=== PATIENT | female | born 1950 | race Caucasian/White ===

== ENCOUNTER 2019-01-28 19:02 | Emergency (ER) | payer OTHER ==
--- NOTE | 2019-01-28 19:09 | PDOC ---
Rapid Medical Evaluation Time Seen by Provider: 01/28/19 19:07 Medical Evaluation: 01/28/19 19:08 I have performed a brief in-person evaluation of this patient. The patient presents with a chief complaint of: fall off chair yesterday, pain to R ankle, L rib pain, R head pain, denies LOC Pertinent physical exam findings: swelling/ecchymosis to R ankle I have ordered the following: xrays, head ct The patient will proceed to the ED for further evaluation. Discharge Disposition - Diagnosis Fall - Discharge Dispostion Condition at time of disposition: Stable - Referrals - Patient Instructions - Post Discharge Activity
[2019-01-28 19:12] VITALS: BP 146/50; PULSE 79; TEMP 98.1; BMI 25.9
--- NOTE | 2019-01-28 21:18 | PDOC ---
History of Present Illness - General Chief Complaint: Injury Stated Complaint: FALL Time Seen by Provider: 01/28/19 19:07 - History of Present Illness Initial Comments: 01/28/19 21:04 69 y/o F w/PMH of NIDDM presents for evaluation after a fall off a chair. She did hit her head, there was no LOC, post injury nausea, vomiting, visual changes , she does have a PERLA on the L where she struck her head on the floor. She also has R lateral ankle pain, she describes an inversion type injury. She also has L sided rib and back pain. Past History - Past Medical History Allergies/Adverse Reactions: Allergies Allergy/AdvReac Type Severity Reaction Status Date / Time No Known Allergies Allergy Verified 01/28/19 19:11 COPD: No Diabetes: Yes - Surgical History Lung Surgery: No Neurologic Surgery: No - Suicide/Smoking/Psychosocial Hx Smoking History: Never smoked Have you smoked in the past 12 months: No Hx Alcohol Use: No Drug/Substance Use Hx: No Review of Systems - Review of Systems HEENTM: No: Blurred Vision Musculoskeletal: Yes: Joint Pain Neurological: Yes: Headache. No: Dizziness *Physical Exam - Vital Signs Last Vital Signs Temp Pulse Resp BP Pulse Ox 98.1 F 79 16 146/50 L 100 01/28/19 19:08 01/28/19 19:08 01/28/19 19:08 01/28/19 19:08 01/28/19 19:08 - Physical Exam Comments: 01/28/19 21:08 HEAD: NC/AT EYES: Conjuntiva clear Ears: Canals and TM's normal NOSE: No d/c THROAT: Moist mucous membrances, oral pharanx clear, uvula midline NECK: Supple without adenopathy CARDIAC: S1 S2 Mild L sided para thorasic tenderness and spasm, no appreciable rib tenderness LUNGS: CTA Full and Equal breath sounds ABDOMEN: Soft NT ND NEUROLOGIC: No gross sensory or motor deficits, NVID SKIN: Normal color and temperature no lesions or rashes Right ankle skin color and temperature are normal range of motion is slightly decreased. There is mild lateral swelling. There is no tenderness about the knee proximal fibula or along its distal course. No tenderness about the medial or lateral malleolus base of the fifth metatarsal or navicular. Mild tenderness about the ATFL. No instability or gross sensorimotor deficits neurovascularly intact thighs and calves are soft and nontender. ED Treatment Course - RADIOLOGY Radiology Studies Ordered: Category Date Time Status CHEST PA & LAT [RAD] Stat Radiology 01/28/19 20:25 Taken Medical Decision Making - Medical Decision Making 01/28/19 22:00 CT negative, WBAT ankle sprain f/u with neurology and ortho *DC/Admit/Observation/Transfer Diagnosis at time of Disposition: Fall, Closed head injury, Ankle sprain, Rib contusion, Strain of mid-back - Discharge Dispostion Disposition: HOME Condition at time of disposition: Stable Decision to Admit order: No - Referrals Referrals: Tamia Hardin MD [Primary Care Provider] - Jaron Hwang MD [Staff Physician] - Markus Stover DO [Staff Physician] - - Patient Instructions Additional Instructions: You may take tylenol for headache and ankle pain. Please, without fail, follow up with orthopedic surgery for further evaluation and treatment options for your ankle sprain, and mid back strain, and with neurology for your closed head injury. Return to the emergency room should your symptoms worsen. you may weight bear as tolerated with the use of the air cast and crutches for your ankle sprain. - Post Discharge Activity
== END 2019-01-28 22:17 | disposition home or self-care (01) ==
LOC: JERFT 19:02
DX: S09.8XXA Other specified injuries of head, initial encounter (principal); S93.401A Sprain of unspecified ligament of right ankle, initial encounter; S29.012A Strain of muscle and tendon of back wall of thorax, initial encounter; S20.222A Contusion of left back wall of thorax, initial encounter; W07.XXXA Fall from chair, initial encounter; Y93.89 Activity, other specified; Y92.038 Other place in apartment as the place of occurrence of the external cause; E11.9 Type 2 diabetes mellitus without complications; Z79.84 Long term (current) use of oral hypoglycemic drugs
CPT/HCPCS: 70450-TC; 71046-TC-FY; 71101-TC-LT-FY; 73610-TC-RT-FY; 73630-TC-RT-FY; 99283-25

== ENCOUNTER 2019-08-04 07:45 | Emergency (ER) | payer BC, OTHER ==
[2019-08-04 07:51] VITALS: BP 126/78; TEMP 98; BMI 56.8
[2019-08-04] MEDS ORDERED: ACETAMINOPHEN 325 MG TABLET (FP) PO ONE (08:02)
[2019-08-04] MEDS ORDERED: LIDOCAINE 5% TOPICAL PATCH TP ONE (08:02)
[2019-08-04] MEDS ORDERED: ACETAMINOPHEN 325 MG TABLET (FP) ONE (08:07)
[2019-08-04] MEDS ORDERED: LIDOCAINE 5% TOPICAL PATCH ONE (08:07)
--- NOTE | 2019-08-04 08:16 | PDOC ---
History of Present Illness - General Chief Complaint: Respiratory Stated Complaint: FEVER Time Seen by Provider: 08/04/19 08:00 History Source: Patient Exam Limitations: No Limitations Past History - Travel Traveled outside of the country in the last 30 days: No Close contact w/someone who was outside of country & ill: No - Past Medical History Allergies/Adverse Reactions: Allergies Allergy/AdvReac Type Severity Reaction Status Date / Time No Known Allergies Allergy Verified 08/04/19 07:51 Home Medications: Ambulatory Orders Acetaminophen [Tylenol -] 1,000 mg PO Q6H #50 tablet 08/04/19 Atorvastatin Calcium [Lipitor] 20 mg PO HS 08/04/19 Cyclobenzaprine HCl [Flexeril -] 10 mg PO HS #10 tablet 08/04/19 Ibuprofen [Ibu] 600 mg PO ONCE 08/04/19 Metformin HCl [Glucophage] 500 mg PO ASDIR 08/04/19 COPD: No Diabetes: Yes - Surgical History Lung Surgery: No Neurologic Surgery: No - Psycho Social/Smoking Cessation Hx Smoking History: Never smoked Have you smoked in the past 12 months: No Hx Alcohol Use: No Drug/Substance Use Hx: No Review of Systems - Review of Systems Able to Perform ROS?: Yes Is the patient limited Croatian proficient: No Constitutional: Yes: Chills. No: Weakness Respiratory: Yes: Cough. No: Shortness of Breath, Wheezing Musculoskeletal: Yes: Back Pain (upper and lower) Neurological: Yes: Headache. No: Weakness All Other Systems: Reviewed and Negative *Physical Exam - Vital Signs Last Vital Signs Temp Pulse Resp BP Pulse Ox 98 F 111 H 18 126/78 99 08/04/19 07:49 08/04/19 07:49 08/04/19 07:49 08/04/19 07:49 08/04/19 07:49 - Physical Exam General Appearance: Yes: Nourished, Appropriately Dressed. No: Apparent Distress HEENT: positive: EOMI, Pharynx Normal Neck: positive: Trachea midline. negative: Tender, Rigid Respiratory/Chest: positive: Lungs Clear, Normal Breath Sounds. negative: Respiratory Distress, Accessory Muscle Use Cardiovascular: positive: Regular Rhythm, Regular Rate, S1, S2 (present). negative: Murmur Musculoskeletal: positive: Muscle Spasm (thoracic paraspinous muscles b/l. ). negative: Vertebral Tenderness, Other (straight leg raise testing b/l ) Neurologic: positive: Fully Oriented, Alert, Normal Mood/Affect, Normal Response, Motor Strength 5/5. negative: Numbness Medical Decision Making - Medical Decision Making 08/04/19 08:40 The patient is a 69 y/o F with PMH of HTN and NIDDM, presents to the ER for upper back pain, cough, and fever for one day. She states she did not take her temperature at home when she had the fever and chills. She states she had seen her PCP for her upper back pain and was referred to a pain management doctor, but she has not been able to make an appointment at this time. She states she took Aleve prior to arrival for her pain. Denies weakness, numbness/tingling to the extremities, saddle anesthesia, bladder/bowel incontinence, gait changes. A/P: Back pain/Cough VSS in triage. Afebrile Likely upper back pain made worse by coughing Pt drove to the ED, defer narcotics/muscle relaxers CXR ordered COVID on differential however no swabs available for testing Tylenol and lidocaine patch given for pain 08/04/19 09:17 X-ray shows no acute chest pathology DC home with muscle relaxers and instructions to make a pain management appointment. Discharge - Discharge Information Problems reviewed: Yes Clinical Impression/Diagnosis: Back pain Qualifiers: Back pain location: thoracic back pain Chronicity: acute Back pain laterality: bilateral Qualified Code(s): M54.6 - Pain in thoracic spine Condition: Stable Disposition: HOME - Admission No - Additional Discharge Information Prescriptions: Cyclobenzaprine HCl [Flexeril -] 10 mg PO HS #10 tablet Acetaminophen [Tylenol -] 1,000 mg PO Q6H #50 tablet - Follow up/Referral Referrals: Tamia Boyle [Primary Care Provider] - - Patient Discharge Instructions Patient Printed Discharge Instructions: DI for Thoracic Back Pain, [facility]- Coronavirus Instructions Additional Instructions: Please self isolate as you have cough and fever for 2 weeks Your chest x-ray was normal Make an appointment with the pain management doctor you have been referred to Take the Tylenol as directed. Do not take more than 4,000mg a day Take the flexeril as directed (muscle relaxer). Do not drink or drive after taking this medication as it may make you drowsy Return to the ER for worsening pain, numbness and tingling, numbness in your groin, loss of bladder/bowel function, or if you have any changes in your sym ptoms - Post Discharge Activity Work/Back to School Note: Back to Work
[2019-08-04 09:27] VITALS: PULSE 90
== END 2019-08-04 09:27 | disposition home or self-care (01) ==
LOC: JER 07:45
DX: M54.6 Pain in thoracic spine (principal); I10 Essential (primary) hypertension; E11.9 Type 2 diabetes mellitus without complications; Z79.84 Long term (current) use of oral hypoglycemic drugs
CPT/HCPCS: 71045-TC-FY; 99283-25

== ENCOUNTER 2022-03-25 09:37 | Emergency (ER) | payer OTHER ==
[2022-03-25 09:48] VITALS: TEMP 97.9; BMI 25.9
[2022-03-25] MEDS ORDERED: GABAPENTIN 400 MG CAPSULE PO ONE (13:13)
[2022-03-25] MEDS ORDERED: GABAPENTIN 400 MG CAPSULE ONE (13:22)
[2022-03-25 15:00] VITALS: BP 130/81; PULSE 82; RESP 18
== END 2022-03-25 15:00 | disposition home or self-care (01) ==
LOC: JER 09:37
DX: M54.30 Sciatica, unspecified side (principal)
CPT/HCPCS: 73590-TC-RT-FY; 73610-TC-RT-FY; 93971-TC; 99284-25

== ENCOUNTER 2022-08-11 09:40 | Emergency (ER) | payer OTHER ==
[2022-08-11 09:46] VITALS: RESP 18; BMI 26.5
[2022-08-11] MEDS ORDERED: ACETAMINOPHEN 1000 MG/100 ML BAG IVPB ONE (10:26)
[2022-08-11] MEDS ORDERED: ACETAMINOPHEN INJECTION 100 ML IVPB ONE (10:53)
[2022-08-11 11:05] LABS: BASO % 0.2 % (0-2.0); EOS % 1.1 % (0-4.5); HEMATOCRIT 39.3 % (32.4-45.2); HEMOGLOBIN 13.5 GM/dL (10.7-15.3); LYMPH % 21.4 % (8-40); MCH 30.2 pg (25.7-33.7); MCHC 34.2 g/dl (32.0-36.0); MEAN CELL VOLUME 88.4 fl (80-96); MEAN PLT VOLUME 9.1 fl (7.5-11.1); MONO % 5.6 % (3.8-10.2); NEUT % 71.7 % (42.8-82.8); PLATELET COUNT 242 10^3/uL (134-434); RBC 4.45 M/mm3 (3.60-5.2); RDW 14.2 % (11.6-15.6); WHITE BLOOD COUNT 8.5 K/mm3 (4.0-10.0)
[2022-08-11 11:08] LABS: EPI CELLS >36 /uL (0-25.1); HYALINE CASTS 1 /uL (0-3.1); URINE APPEARANCE CLOUDY; URINE BACTERIA 11 /uL (0-1359); URINE BILIRUBIN NEGATIVE (NEGATIVE); URINE COLOR YELLOW; URINE GLUCOSE (UA) 2+ (NEGATIVE); URINE KETONE NEGATIVE (NEGATIVE); URINE LEUK ESTERASE NEGATIVE (NEGATIVE); URINE NITRITE NEGATIVE (NEGATIVE); URINE PROTEIN 2+ (NEGATIVE); URINE RBC 937 /uL (0-23.9); URINE WBC 28 /uL (0-25.8)
[2022-08-11 11:25] LABS: LACTIC ACID 2.7 mmol/L (0.4-2.0)
[2022-08-11 11:28] LABS: CALCIUM 9.1 mg/dL (8.5-10.1)
[2022-08-11 11:29] LABS: ALBUMIN 3.8 g/dl (3.4-5.0); BLOOD UREA NITROGEN 20.9 mg/dL (7-18)
[2022-08-11 11:32] LABS: CREATININE 0.8 mg/dL (0.55-1.3)
[2022-08-11 11:33] LABS: BILIRUBIN,TOTAL 0.4 mg/dL (0.2-1); TOT PROT 7.2 g/dl (6.4-8.2)
[2022-08-11] MEDS ORDERED: SODIUM CHLORIDE 0.9% 500 ML INFUS.BAG IV ONE (11:35)
[2022-08-11 17:46] VITALS: BP 120/75; PULSE 65; TEMP 97.9
== END 2022-08-11 17:46 | disposition home or self-care (01) ==
LOC: JER 09:40
PROC: 3E033NZ Introduction of Analgesics, Hypnotics, Sedatives into Peripheral Vein, Percutaneous Approach (ICD-10-PCS; principal; 2022-08-11)
DX: N30.00 Acute cystitis without hematuria (principal); R10.31 Right lower quadrant pain
CPT/HCPCS: 36415; 74176-TC; 80053; 81003; 83605; 83735; 85025; 87086; 93005; 93010; 99285-25

== ENCOUNTER 2023-05-21 15:16 | Emergency (ER) | payer OTHER ==
[2023-05-21 15:22] VITALS: RESP 18; TEMP 98.8; BMI 25.9
[2023-05-21] MEDS ORDERED: ONDANSETRON 4 MG/2 ML VIAL IVPUSH ONE (16:37)
[2023-05-21] MEDS ORDERED: ACETAMINOPHEN 1000 MG/100 ML BAG IVPB ONE (16:37)
[2023-05-21] MEDS ORDERED: FAMOTIDINE 20 MG/50 ML IVPB 20 MG/50 ML MG IVPB ONE ×2 (16:37→17:31)
[2023-05-21] MEDS ORDERED: SODIUM CHLORIDE 1,000 ML IV STA ×2 (16:37→23:15)
[2023-05-21 17:04] LABS: BASO % 0.4 % (0-2.0); EOS % 0.7 % (0-4.5); HEMATOCRIT 40.2 % (32.4-45.2); HEMOGLOBIN 13.2 GM/dL (10.7-15.3); LYMPH % 6.8 % (8-40); MCH 28.8 pg (25.7-33.7); MCHC 32.8 g/dl (32.0-36.0); MEAN CELL VOLUME 87.8 fl (80-96); MEAN PLT VOLUME 8.3 fl (7.5-11.1); MONO % 6.8 % (3.8-10.2); NEUT % 85.3 % (42.8-82.8); PLATELET COUNT 235 10^3/uL (134-434); RBC 4.58 M/mm3 (3.60-5.2); RDW 14.7 % (11.6-15.6); WHITE BLOOD COUNT 12.4 K/mm3 (4.0-10.0)
[2023-05-21 17:11] LABS: INR 1.07 (0.83-1.09); PROTHROMBIN TIME (PATIENT) 12.4 SEC (9.7-13.0)
[2023-05-21 17:14] LABS: ACTIVATED PTT 31.6 SECONDS (25.2-36.5)
[2023-05-21 17:23] LABS: POTASSIUM 3.8 mmol/L (3.5-5.1)
[2023-05-21 17:25] LABS: CALCIUM 9.4 mg/dL (8.5-10.1)
[2023-05-21 17:26] LABS: ALBUMIN 3.8 g/dl (3.4-5.0); BLOOD UREA NITROGEN 12.9 mg/dL (7-18); MAGNESIUM 1.7 mg/dL (1.8-2.4)
[2023-05-21 17:29] LABS: CREATININE 0.6 mg/dL (0.55-1.3)
[2023-05-21 17:30] LABS: BILIRUBIN,TOTAL 0.6 mg/dL (0.2-1); TOT PROT 7.3 g/dl (6.4-8.2)
[2023-05-21] MEDS ORDERED: ACETAMINOPHEN INJECTION 100 ML IVPB ONE (17:31)
[2023-05-21] MEDS ORDERED: ONDANSETRON 4 MG/2 ML VIAL ONE (17:31)
[2023-05-21] MEDS ORDERED: MECLIZINE HCL 25 MG TABLET (FP) PO ONE (17:55)
[2023-05-21] MEDS ORDERED: MECLIZINE HCL 25 MG TABLET (FP) ONE (18:25)
[2023-05-21 20:07] VITALS: BP 124/67; PULSE 84
[2023-05-21 21:12] LABS: EPI CELLS >36 /uL (0-25.1); HYALINE CASTS 0 /uL (0-3.1); PH,URINE 6.5 (5.0-8.0); URINE APPEARANCE CLOUDY; URINE BACTERIA 389 /uL (0-1359); URINE BILIRUBIN NEGATIVE (NEGATIVE); URINE COLOR YELLOW; URINE GLUCOSE (UA) NEGATIVE (NEGATIVE); URINE KETONE TRACE (NEGATIVE); URINE LEUK ESTERASE 2+ (NEGATIVE); URINE NITRITE NEGATIVE (NEGATIVE); URINE PROTEIN NEGATIVE (NEGATIVE); URINE RBC 11 /uL (0-23.9); URINE WBC 244 /uL (0-25.8)
[2023-05-21] MEDS ORDERED: guaiFENesin/D-METHORPHAN HB 10 ML UNIT-DOSE CUPS PO ONE (23:01)
[2023-05-21] MEDS ORDERED: ONDANSETRON 4 MG/2 ML VIAL IVPUSH PRN (23:16)
[2023-05-21] MEDS ORDERED: MECLIZINE HCL 25 MG TABLET (FP) PO PRN (23:21)
[2023-05-21] MEDS ORDERED: CEFTRIAXONE 1 GM in DEXTROSE 5%-WATER - 100 ML IVPB ONE (23:24)
[2023-05-21] MEDS ORDERED: SODIUM CHLORIDE 1,000 ML IV SCH (23:30)
[2023-05-22] MEDS ORDERED: REMDESIVIR 200 MG in SODIUM CHLORIDE 250 ML IVPB ONE (00:05)
[2023-05-23] MEDS ORDERED: REMDESIVIR 100 MG in SODIUM CHLORIDE 250 ML IVPB SCH (10:00)
== END 2023-05-22 00:17 | disposition left against medical advice (07) ==
LOC: JER 15:16
PROC: 3E033GC Introduction of Other Therapeutic Substance into Peripheral Vein, Percutaneous Approach (ICD-10-PCS; principal; 2023-05-21)
PROC: 3E033NZ Introduction of Analgesics, Hypnotics, Sedatives into Peripheral Vein, Percutaneous Approach (ICD-10-PCS; 2023-05-21)
PROC: 3E033GC Introduction of Other Therapeutic Substance into Peripheral Vein, Percutaneous Approach (ICD-10-PCS; 2023-05-21)
DX: R11.2 Nausea with vomiting, unspecified (principal); R42 Dizziness and giddiness; R19.7 Diarrhea, unspecified; M54.9 Dorsalgia, unspecified; W19.XXXA Unspecified fall, initial encounter; W22.8XXA Striking against or struck by other objects, initial encounter; U07.1 COVID-19; N30.00 Acute cystitis without hematuria
CPT/HCPCS: 0241U-QW; 36415; 70450-TC; 71046-TC-FY; 71250-TC; 80053; 81003; 83735; 84484; 85025; 85610; 85730; 87086; 93005; 93010; 96365; 96375; 99285-25

== ENCOUNTER 2023-09-02 18:07 | Emergency (ER) | payer OTHER ==
[2023-09-02 18:15] VITALS: BP 124/56; PULSE 73; RESP 18; TEMP 98; BMI 25.1
[2023-09-02] MEDS ORDERED: IBUPROFEN 600 MG TABLET (FP) PO ONE (20:20)
[2023-09-02] MEDS: IBUPROFEN 600 MG TABLET (FP) PO ONE (20:26)
== END 2023-09-02 20:52 | disposition home or self-care (01) ==
LOC: JERFT 18:07
DX: S93.402A Sprain of unspecified ligament of left ankle, initial encounter (principal); M25.561 Pain in right knee; M25.562 Pain in left knee; M25.461 Effusion, right knee; M25.571 Pain in right ankle and joints of right foot; M25.572 Pain in left ankle and joints of left foot; M25.472 Effusion, left ankle; W10.8XXA Fall (on) (from) other stairs and steps, initial encounter
CPT/HCPCS: 73562-TC-LT-FY; 73562-TC-RT-FY; 73610-TC-LT-FY; 73610-TC-RT-FY; 99284-25